=== PATIENT | male | born 1995 | race Caucasian/White ===

== ENCOUNTER 2020-01-17 01:09 | Emergency (ER) | payer SELFPAY ==
[~2020-01-17] VITALS: Ht 182.8 cm; Wt 124.7 kg
[2020-01-17] MEDS ORDERED: IBUPROFEN600 MG PO (02:20)
== END 2020-01-17 03:11 | disposition home or self-care (01) ==
LOC: ED 01:09
DX: S93.401A Sprain of unspecified ligament of right ankle, initial encounter (principal); F17.200 Nicotine dependence, unspecified, uncomplicated; Z88.8 Allergy status to other drugs, medicaments and biological substances; X50.1XXA Overexertion from prolonged static or awkward postures, initial encounter; Y93.89 Activity, other specified; Y92.89 Other specified places as the place of occurrence of the external cause; Y99.8 Other external cause status

== ENCOUNTER 2022-11-13 10:42 | Emergency (ER) | payer SELFPAY ==
[~2022-11-13] VITALS: Wt 113.4 kg
[~2022-11-13 10:42] MED LIST: IBUPROFEN600 MG PO
[2022-11-13] MEDS ORDERED: AMOX-CLAV 875-1 EACH PO (12:05)
== END 2022-11-13 12:12 | disposition home or self-care (01) ==
LOC: ED 10:42
DX: K08.89 Other specified disorders of teeth and supporting structures (principal); K04.7 Periapical abscess without sinus; Z88.8 Allergy status to other drugs, medicaments and biological substances